=== PATIENT | female | born 1980 | race Hispanic/Latino ===

== ENCOUNTER 2018-08-05 23:14 | Emergency (ER) | payer OTHER ==
[2018-08-06] MEDS: LIDOCAINE 1% MDV 20ML VIAL SC (00:02)
[2018-08-06] MEDS ORDERED: NEOSPORIN OINT 0.9 GM PKT (FLOOR STOCK) As Ordered (00:05)
[2018-08-06] MEDS: ADACEL/BOOSTRIX VACCINE (DIPHTH/PERTUSS/ACELL/TETANUS)0.5ML SYR (90715) IM (00:08)
== END 2018-08-06 00:20 | disposition home or self-care (01) ==
LOC: M ED 23:14
DX: S61.211A Laceration without foreign body of left index finger without damage to nail, initial encounter (principal); W45.8XXA Other foreign body or object entering through skin, initial encounter; Y92.019 Unspecified place in single-family (private) house as the place of occurrence of the external cause
CPT/HCPCS: 90715

== ENCOUNTER 2019-02-24 20:33 | Emergency (ER) | payer OTHER ==
[~2019-02-24] VITALS: Ht 147.3 cm; Wt 70.0 kg
[2019-02-24 20:33] VITALS: BP 119/68
[2019-02-24] MEDS ORDERED: DOXY100C37 PO (21:04)
[2019-02-24] MEDS ORDERED: DOXYCYCLINE HYCLATE 100 MG TAB PO ONE (21:15)
[2019-02-28 00:08] LABS: Lyme Disease IgG/IgM Antibodie <0.91 ISR (0.00-0.90); Lyme Disease IgM Ab Quantitati <0.80 index (0.00-0.79)
== END 2019-02-24 21:22 | disposition home or self-care (01) ==
LOC: M ED 20:33
DX: S20.462A Insect bite (nonvenomous) of left back wall of thorax, initial encounter (principal); W57.XXXA Bitten or stung by nonvenomous insect and other nonvenomous arthropods, initial encounter; Y92.89 Other specified places as the place of occurrence of the external cause

== ENCOUNTER → 2019-06-22 | Outpatient (CLI) | payer OTHER ==
[~2019-06-22] MED LIST: DOXY100C37 PO
--- NOTE | 2019-06-22 12:18 | REPMRS ---
Patient History The patient states she has not had a clinical breast exam in over a year. No known family history of cancer. Digital Mammo Screening Bilat: June 22, 2019 - Exam #: [id number] Bilateral CC and MLO view(s) were taken. Technologist: Myesha Guzman, Technologist No prior studies available for comparison. FINDINGS: There are scattered fibroglandular densities. There is no evidence of dominant mass, architectural distortion, or grouped microcalcification typical of malignancy. 3-D tomosynthesis shows no additional findings. Assessment: BI-RADS/ACR category 1 mammogram. Negative Mammogram. Recommendation Routine screening mammogram of both breasts in 1 year (for women over age 40). This patient's Lifetime Breast Cancer RIsk is estimated at 9.3 %. This mammogram was interpreted with the aid of an FDA-approved computer-aided dectection system. Electronically Signed By: Cristi Johnson MD 06/22/19 4334
== END ==
LOC: M RAD 09:44
PROVIDERS: ATTEND Nurse Practitioner Primary Care
DX: Z12.31 Encounter for screening mammogram for malignant neoplasm of breast (principal)

== ENCOUNTER → 2020-09-18 | Outpatient (CLI) | payer SELFPAY | LOC: M LABSMTC 13:55 | PROVIDERS: ATTEND Pediatrics | DX: Z20.828 Contact with and (suspected) exposure to other viral communicable diseases (principal) ==

== ENCOUNTER 2021-04-30 10:51 | Emergency (ER) | payer OTHER, SELFPAY ==
[~2021-04-30] VITALS: Ht 149.9 cm; Wt 71.4 kg
[~2021-04-30 10:51] MED LIST changes: -DOXY100C37 PO; +DOXY1CAP62 PO
[2021-04-30 10:52] VITALS: BP 135/86
== END 2021-04-30 14:27 | disposition home or self-care (01) ==
LOC: M ED 10:51
DX: S01.01XA Laceration without foreign body of scalp, initial encounter (principal); W22.8XXA Striking against or struck by other objects, initial encounter; Y92.019 Unspecified place in single-family (private) house as the place of occurrence of the external cause; Y93.9 Activity, unspecified; Y99.8 Other external cause status